=== PATIENT | male | born 1965 | race Caucasian/White ===

== ENCOUNTER 2017-12-22 08:27 | Emergency (ER) | payer OTHER ==
[~2017-12-22] VITALS: Ht 182.9 cm; Wt 113.4 kg
[~2017-12-22 08:27] MED LIST: MECL12.5 PO; Percocet 5-3251 EACH PO; Triamcinolone A15 GM TOP
[2017-12-22] MEDS ORDERED: Prednisone20 MG PO (09:53)
[2017-12-22] MEDS ORDERED: HYDR1TAB94 PO (09:53)
== END 2017-12-22 10:05 | disposition home or self-care (01) ==
LOC: ER 08:27
DX: G89.29 Other chronic pain (principal); M54.5 Low back pain; Z79.891 Long term (current) use of opiate analgesic
CPT/HCPCS: 99283